=== PATIENT | female | born 1955 | race Caucasian/White ===

== ENCOUNTER 2021-07-01 13:47 | Inpatient (IN) | payer MEDICARE, OTHER ==
[~2021-07-01] VITALS: Ht 165.1 cm; Wt 44.5 kg
[2021-07-01] MEDS ORDERED: MAG HYDROX/AL HYDROX/SIMETH 30 ML LIQUID UDC PO PRN (16:45)
[2021-07-01] MEDS ORDERED: ZOLPIDEM 5 MG TABLET PO PRN (16:45)
[2021-07-01] MEDS ORDERED: MAGNESIUM HYDROXIDE 30 ML LIQUID UDC PO PRN (16:45)
[2021-07-01] MEDS ORDERED: ACETAMINOPHEN 325 MG TABLET PO PRN (16:45)
[2021-07-01 16:52] VITALS: BP 109/83
[2021-07-01 20:00] VITALS: BP 136/69
[2021-07-01] MEDS ORDERED: LEVE1000 PO (20:11)
[2021-07-01] MEDS ORDERED: CYAN-51 PO (20:11)
[2021-07-01] MEDS ORDERED: DOCU100C36 PO (20:11)
[2021-07-01] MEDS ORDERED: CHOL2000 (20:11)
[2021-07-01] MEDS ORDERED: BISA10SU61 RC (20:11)
[2021-07-01] MEDS ORDERED: BISACODYL 10 MG SUPP.RECT RC PRN (21:45)
[2021-07-01] MEDS: CYANOCOBALAMIN 1,000 MCG TABLET PO SCH (21:45)
[2021-07-01] MEDS: levETIRAcetam 500 MG TABLET PO SCH (22:17)
[2021-07-02 07:30] VITALS: BP 107/56
[2021-07-02] MEDS: CYANOCOBALAMIN 1,000 MCG TABLET PO SCH (09:41)
[2021-07-02] MEDS: levETIRAcetam 500 MG TABLET PO SCH ×2 (09:41→20:37)
[2021-07-02 12:40] LABS: HEMATOCRIT 36.2 % (31.2-41.9); MEAN CORPUSCULAR HEMOGLOBIN 32.2 uug (24.7-32.8); PLATELET COUNT (AUTO) 262 K/uL (179-408)
[2021-07-02] MEDS: ENSURE ENLIVE (VAN) 240 ML LIQUID PO SCH ×2 (13:21→17:45)
[2021-07-02 16:50] VITALS: BP 115/60
[2021-07-02 20:00] VITALS: BP 134/68
[2021-07-02] MEDS: LORAZEPAM 1 MG TABLET PO PRN (20:37)
[2021-07-02] MEDS: QUETIAPINE FUMARATE 25 MG TABLET PO SCH (20:37)
[2021-07-02] MEDS: DOCUSATE SODIUM 100 MG CAPSULE PO SCH (20:37)
[2021-07-03 08:35] VITALS: BP 117/66
[2021-07-03] MEDS: ENSURE ENLIVE (VAN) 240 ML LIQUID PO SCH ×3 (09:12→17:50)
[2021-07-03] MEDS: ESCITALOPRAM OXALATE 10 MG TABLET PO SCH (09:13)
[2021-07-03] MEDS: levETIRAcetam 500 MG TABLET PO SCH ×2 (09:14→20:16)
[2021-07-03] MEDS: CYANOCOBALAMIN 1,000 MCG TABLET PO SCH (09:15)
[2021-07-03 15:58] VITALS: BP 103/64
[2021-07-03 20:00] VITALS: BP 131/61
[2021-07-03] MEDS: LORAZEPAM 1 MG TABLET PO PRN (20:16)
[2021-07-03] MEDS: DOCUSATE SODIUM 100 MG CAPSULE PO SCH (20:17)
[2021-07-03] MEDS: QUETIAPINE FUMARATE 25 MG TABLET PO SCH (20:17)
[2021-07-04 06:55] LABS: *BILIRUBIN,URIN NEGATIVE (NEGATIVE); *BLOOD, URINE NEGATIVE (NEGATIVE); *CLARITY,URINE CLEAR (CLEAR); *COLOR,URINE YELLOW (YELLOW); *KETONES,URINE NEGATIVE (NEGATIVE); *UROBILINOGEN,URINE 0.2 E.U./dl (NORMAL); LEUKOCYTE ESTERASE ,URINE TRACE (NEGATIVE); NITRITE, URINE NEGATIVE (NEGATIVE); PH,URINE 5.5 (5.0-8.0); UGLUCOSE NEGATIVE (NEGATIVE)
[2021-07-04 07:21] LABS: RBC,URINE NONE SEEN /HPF (0-3); SQUAMOUS EPITHELIAL CELL,UR FEW /HPF (NONE SEEN)
[2021-07-04 07:22] LABS: BACTERIA,URINE NONE SEEN /HPF (NONE SEEN)
[2021-07-04 07:48] VITALS: BP 107/57
[2021-07-04] MEDS: ESCITALOPRAM OXALATE 10 MG TABLET PO SCH (08:46)
[2021-07-04] MEDS: levETIRAcetam 500 MG TABLET PO SCH ×2 (08:46→20:30)
[2021-07-04] MEDS: CYANOCOBALAMIN 1,000 MCG TABLET PO SCH (08:50)
[2021-07-04] MEDS: ENSURE ENLIVE (VAN) 240 ML LIQUID PO SCH ×3 (08:51→17:00)
[2021-07-04 16:18] VITALS: BP 121/74
[2021-07-04 20:21] VITALS: BP 106/64
[2021-07-04] MEDS: SULFAMETH/TRIMETH 800/160 MG TABLET PO SCH (20:30)
[2021-07-04] MEDS: QUETIAPINE FUMARATE 25 MG TABLET PO SCH (20:30)
[2021-07-04] MEDS: DOCUSATE SODIUM 100 MG CAPSULE PO SCH (20:30)
[2021-07-05 07:45] VITALS: BP 103/55
[2021-07-05] MEDS: SULFAMETH/TRIMETH 800/160 MG TABLET PO SCH ×2 (08:57→20:43)
[2021-07-05] MEDS: ESCITALOPRAM OXALATE 10 MG TABLET PO SCH (08:58)
[2021-07-05] MEDS: levETIRAcetam 500 MG TABLET PO SCH ×2 (08:59→20:43)
[2021-07-05] MEDS: ENSURE ENLIVE (VAN) 240 ML LIQUID PO SCH ×3 (08:59→17:00)
[2021-07-05] MEDS: CYANOCOBALAMIN 1,000 MCG TABLET PO SCH (08:59)
[2021-07-05 16:21] VITALS: BP 134/67
[2021-07-05 20:06] VITALS: BP 118/54
[2021-07-05] MEDS: QUETIAPINE FUMARATE 25 MG TABLET PO SCH (20:43)
[2021-07-05] MEDS: DOCUSATE SODIUM 100 MG CAPSULE PO SCH (20:43)
[2021-07-06 07:30] VITALS: BP 124/64
[2021-07-06] MEDS: CYANOCOBALAMIN 1,000 MCG TABLET PO SCH (08:36)
[2021-07-06] MEDS: ESCITALOPRAM OXALATE 10 MG TABLET PO SCH (08:36)
[2021-07-06] MEDS: SULFAMETH/TRIMETH 800/160 MG TABLET PO SCH ×2 (08:36→20:29)
[2021-07-06] MEDS: levETIRAcetam 500 MG TABLET PO SCH ×2 (08:37→20:30)
[2021-07-06] MEDS: ENSURE ENLIVE (VAN) 240 ML LIQUID PO SCH ×3 (08:38→17:00)
[2021-07-06 15:47] LABS: CREATININE 1.2 mg/dL (0.6-1.3); POTASSIUM 4.4 mmol/L (3.5-5.1)
[2021-07-06 16:00] VITALS: BP 128/70
[2021-07-06 20:00] VITALS: BP 125/70
[2021-07-06] MEDS: QUETIAPINE FUMARATE 25 MG TABLET PO SCH (20:29)
[2021-07-06] MEDS: DOCUSATE SODIUM 100 MG CAPSULE PO SCH (20:30)
[2021-07-07 07:53] VITALS: BP 107/65
[2021-07-07] MEDS: ENSURE ENLIVE (VAN) 240 ML LIQUID PO SCH ×3 (08:30→16:44)
[2021-07-07] MEDS: SULFAMETH/TRIMETH 800/160 MG TABLET PO SCH ×2 (08:30→20:49)
[2021-07-07] MEDS: CYANOCOBALAMIN 1,000 MCG TABLET PO SCH (08:30)
[2021-07-07] MEDS: ESCITALOPRAM OXALATE 10 MG TABLET PO SCH (08:30)
[2021-07-07] MEDS: levETIRAcetam 500 MG TABLET PO SCH ×2 (08:30→20:49)
[2021-07-07 17:29] VITALS: BP 121/52
[2021-07-07 20:00] VITALS: BP 112/61
[2021-07-07] MEDS: DOCUSATE SODIUM 100 MG CAPSULE PO SCH (20:49)
[2021-07-07] MEDS: QUETIAPINE FUMARATE 25 MG TABLET PO SCH (20:50)
[2021-07-08 07:52] VITALS: BP 113/60
[2021-07-08] MEDS: SULFAMETH/TRIMETH 800/160 MG TABLET PO SCH (09:39)
[2021-07-08] MEDS: CYANOCOBALAMIN 1,000 MCG TABLET PO SCH (09:39)
[2021-07-08] MEDS: levETIRAcetam 500 MG TABLET PO SCH ×2 (09:39→20:56)
[2021-07-08] MEDS: ESCITALOPRAM OXALATE 10 MG TABLET PO SCH (09:40)
[2021-07-08] MEDS: ENSURE ENLIVE (VAN) 240 ML LIQUID PO SCH ×3 (09:41→18:49)
[2021-07-08 16:00] VITALS: BP 116/65
[2021-07-08 20:07] VITALS: BP 128/68
[2021-07-08] MEDS: DOCUSATE SODIUM 100 MG CAPSULE PO SCH (20:56)
[2021-07-08] MEDS: QUETIAPINE FUMARATE 25 MG TABLET PO SCH (20:56)
[2021-07-09 08:00] VITALS: BP 123/64
[2021-07-09] MEDS: ENSURE ENLIVE (VAN) 240 ML LIQUID PO SCH ×3 (09:00→17:40)
[2021-07-09] MEDS: levETIRAcetam 500 MG TABLET PO SCH ×2 (09:06→20:46)
[2021-07-09] MEDS: ESCITALOPRAM OXALATE 10 MG TABLET PO SCH (09:06)
[2021-07-09] MEDS: CYANOCOBALAMIN 1,000 MCG TABLET PO SCH (09:22)
[2021-07-09 16:00] VITALS: BP 114/65
[2021-07-09] MEDS: DOCUSATE SODIUM 100 MG CAPSULE PO SCH (20:46)
[2021-07-09] MEDS: QUETIAPINE FUMARATE 25 MG TABLET PO SCH (20:46)
[2021-07-09 21:24] VITALS: BP 113/53
[2021-07-10 07:30] VITALS: BP 115/57
[2021-07-10] MEDS: CYANOCOBALAMIN 1,000 MCG TABLET PO SCH (08:28)
[2021-07-10] MEDS: ESCITALOPRAM OXALATE 10 MG TABLET PO SCH (08:29)
[2021-07-10] MEDS: levETIRAcetam 500 MG TABLET PO SCH ×2 (08:32→20:38)
[2021-07-10] MEDS: ENSURE ENLIVE (VAN) 240 ML LIQUID PO SCH ×3 (08:38→17:00)
[2021-07-10 16:00] VITALS: BP 115/68
[2021-07-10 20:00] VITALS: BP 105/66
[2021-07-10] MEDS: DOCUSATE SODIUM 100 MG CAPSULE PO SCH (20:38)
[2021-07-10] MEDS: QUETIAPINE FUMARATE 25 MG TABLET PO SCH (20:38)
[2021-07-11 07:30] VITALS: BP 118/53
[2021-07-11] MEDS: levETIRAcetam 500 MG TABLET PO SCH ×2 (08:31→21:24)
[2021-07-11] MEDS: ESCITALOPRAM OXALATE 10 MG TABLET PO SCH (08:31)
[2021-07-11] MEDS: CYANOCOBALAMIN 1,000 MCG TABLET PO SCH (08:32)
[2021-07-11] MEDS: ENSURE ENLIVE (VAN) 240 ML LIQUID PO SCH ×3 (08:32→17:00)
[2021-07-11 16:00] VITALS: BP 102/56
[2021-07-11 20:30] VITALS: BP 100/61
[2021-07-11] MEDS: DOCUSATE SODIUM 100 MG CAPSULE PO SCH (21:24)
[2021-07-11] MEDS: QUETIAPINE FUMARATE 25 MG TABLET PO SCH (21:24)
[2021-07-12 07:58] VITALS: BP 120/81
[2021-07-12] MEDS: levETIRAcetam 500 MG TABLET PO SCH ×2 (08:24→20:43)
[2021-07-12] MEDS: CYANOCOBALAMIN 1,000 MCG TABLET PO SCH (08:24)
[2021-07-12] MEDS: ESCITALOPRAM OXALATE 10 MG TABLET PO SCH (08:24)
[2021-07-12] MEDS: ENSURE ENLIVE (VAN) 240 ML LIQUID PO SCH ×3 (08:28→17:00)
[2021-07-12 15:48] VITALS: BP 123/67
[2021-07-12] MEDS: DOCUSATE SODIUM 100 MG CAPSULE PO SCH (20:43)
[2021-07-12] MEDS: QUETIAPINE FUMARATE 25 MG TABLET PO SCH (20:43)
[2021-07-12 22:04] VITALS: BP 116/65
[2021-07-13] MEDS: ESCITALOPRAM OXALATE 10 MG TABLET PO SCH (08:09)
[2021-07-13] MEDS: DOCUSATE SODIUM 100 MG CAPSULE PO SCH ×2 (08:09→20:17)
[2021-07-13] MEDS: CYANOCOBALAMIN 1,000 MCG TABLET PO SCH (08:10)
[2021-07-13] MEDS: ENSURE ENLIVE (VAN) 240 ML LIQUID PO SCH ×3 (08:10→16:24)
[2021-07-13] MEDS: levETIRAcetam 500 MG TABLET PO SCH (08:10)
[2021-07-13 09:11] VITALS: BP 100/52
[2021-07-13] MEDS ORDERED: MAGNESIUM HYDROXIDE 30 ML LIQUID UDC PO PRN (12:30)
[2021-07-13 15:09] VITALS: BP 125/54
[2021-07-13] MEDS: QUETIAPINE FUMARATE 25 MG TABLET PO SCH (20:17)
[2021-07-13] MEDS: levETIRAcetam 500 MG/5 ML LIQUID UDC PO SCH (20:17)
[2021-07-13 20:22] VITALS: BP 122/68
[2021-07-14 08:35] VITALS: BP 116/65
[2021-07-14] MEDS: ESCITALOPRAM OXALATE 10 MG TABLET PO SCH (10:00)
[2021-07-14] MEDS: DOCUSATE SODIUM 100 MG CAPSULE PO SCH ×2 (10:01→20:10)
[2021-07-14] MEDS: CYANOCOBALAMIN 1,000 MCG TABLET PO SCH (10:01)
[2021-07-14] MEDS: levETIRAcetam 500 MG/5 ML LIQUID UDC PO SCH ×2 (10:03→20:10)
[2021-07-14] MEDS: ENSURE ENLIVE (VAN) 240 ML LIQUID PO SCH ×3 (10:24→17:00)
[2021-07-14 16:00] VITALS: BP 122/71
[2021-07-14] MEDS: QUETIAPINE FUMARATE 25 MG TABLET PO SCH (20:10)
[2021-07-14 22:23] VITALS: BP 111/71
[2021-07-15 09:45] VITALS: BP 113/81
[2021-07-15] MEDS: CYANOCOBALAMIN 1,000 MCG TABLET PO SCH (09:53)
[2021-07-15] MEDS: ESCITALOPRAM OXALATE 10 MG TABLET PO SCH (09:53)
[2021-07-15] MEDS: levETIRAcetam 500 MG/5 ML LIQUID UDC PO SCH ×2 (09:54→20:22)
[2021-07-15] MEDS: DOCUSATE SODIUM 100 MG CAPSULE PO SCH ×2 (09:54→20:22)
[2021-07-15] MEDS: ENSURE ENLIVE (VAN) 240 ML LIQUID PO SCH ×3 (09:54→17:33)
[2021-07-15] MEDS: QUETIAPINE FUMARATE 25 MG TABLET PO SCH (20:22)
[2021-07-15 20:53] VITALS: BP 109/59
[2021-07-16] MEDS: ESCITALOPRAM OXALATE 10 MG TABLET PO SCH (08:52)
[2021-07-16] MEDS: DOCUSATE SODIUM 100 MG CAPSULE PO SCH (08:52)
[2021-07-16] MEDS: CYANOCOBALAMIN 1,000 MCG TABLET PO SCH (08:52)
[2021-07-16] MEDS: ENSURE ENLIVE (VAN) 240 ML LIQUID PO SCH (08:53)
[2021-07-16] MEDS: levETIRAcetam 500 MG/5 ML LIQUID UDC PO SCH (08:53)
== END 2021-07-16 13:35 | DRG 885 ==
LOC: GPS 13:47
PROVIDERS: ADMIT Psychiatry & Neurology Psychiatry; ATTEND Registered Nurse
DX: F29 Unspecified psychosis not due to a substance or known physiological condition (principal); F01.51 Vascular dementia, unspecified severity, with behavioral disturbance; E44.0 Moderate protein-calorie malnutrition; Z68.1 Body mass index [BMI] 19.9 or less, adult; G93.40 Encephalopathy, unspecified; F41.9 Anxiety disorder, unspecified; G40.909 Epilepsy, unspecified, not intractable, without status epilepticus; K59.00 Constipation, unspecified; E88.09 Other disorders of plasma-protein metabolism, not elsewhere classified; Z20.822 Contact with and (suspected) exposure to COVID-19; Z88.1 Allergy status to other antibiotic agents; Z88.0 Allergy status to penicillin
CPT/HCPCS: 36415; 84443; 85025; 87086; 93005; 97161